=== PATIENT | male | born 1945 | race Caucasian/White ===

== ENCOUNTER → 2020-04-06 08:47 | Outpatient (BNVA) | payer MEDICARE, SELFPAY | PROVIDERS: PCP Internal Medicine; Referring Provider Internal Medicine; Visit Provider Hospitalist | DX: J44.9 Chronic obstructive pulmonary disease, unspecified (principal); J92.0 Pleural plaque with presence of asbestos; G47.33 Obstructive sleep apnea (adult) (pediatric) | CPT/HCPCS: 99214 ==

== ENCOUNTER 2021-03-13 08:35 | Outpatient (REF) | payer MEDICARE, SELFPAY ==
--- NOTE | 2021-03-13 13:02 | PFT_ITS ---
Forced vital capacity is slightly decreased. FEV1 is normal. [id number] is normal. MVV moderately decreased probably due to poor effort. Bronchodilator challenge was not given. Total lung capacity is moderately decreased. Residual volume slightly decreased. Diffusion capacity is markedly decreased. CONCLUSION: There is evidence of [id number] degree of restrictive pulmonary disorder. No significant obstructive disorder is noted. Diffusion capacity is decreased relatively out of proportion to the other values. This may be due to presence of pulmonary emphysema or non-pulmonary factors. Clinical correlation is recommended. MD DORITA Madrigal/MODL / [id number]
== END 2021-03-13 08:36 | disposition home or self-care (01) ==
LOC: HO.RESP 08:35
PROVIDERS: PCP Internal Medicine; Visit Provider Hospitalist
DX: J41.0 Simple chronic bronchitis (principal)
CPT/HCPCS: 94010

== ENCOUNTER → 2021-04-05 08:47 | Outpatient (BNVA) | payer MEDICARE, SELFPAY | PROVIDERS: PCP Internal Medicine; Visit Provider Hospitalist | DX: J41.0 Simple chronic bronchitis (principal); J92.0 Pleural plaque with presence of asbestos; J98.4 Other disorders of lung; G47.33 Obstructive sleep apnea (adult) (pediatric) | CPT/HCPCS: 99212 ==

== ENCOUNTER → 2022-04-07 09:28 | Outpatient (BNVA) | payer MEDICARE, SELFPAY | PROVIDERS: PCP Internal Medicine; Visit Provider Hospitalist | DX: J41.0 Simple chronic bronchitis (principal); T57.8X1A Toxic effect of other specified inorganic substances, accidental (unintentional), initial encounter; J68.8 Other respiratory conditions due to chemicals, gases, fumes and vapors; Y92.9 Unspecified place or not applicable; J98.4 Other disorders of lung; G47.33 Obstructive sleep apnea (adult) (pediatric); Z99.89 Dependence on other enabling machines and devices | CPT/HCPCS: 99212 ==

== ENCOUNTER 2023-04-07 09:29 | Outpatient (AMB) | payer MEDICARE, SELFPAY ==
[2023-04-07 09:29] VITALS: BMI 25.8
--- NOTE | 2023-04-07 09:29 | A.OFFVIS_ITS ---
Intake Vital Signs 04/07/23 09:29 Height 5 ft 8 in Weight 170 lb BMI 25.8 Intake Visit Reasons: copd Manager Investment Required: No Allergies alprazolam [Xanax] Allergy (Mild, Verified 04/07/23 09:30) Itch and Rash amiodarone Allergy (Mild, Verified 04/07/23 09:30) Extreme Nausea/gastritis carisoprodol [Soma] Allergy (Mild, Verified 04/07/23 09:30) tachycardia/arryhythmia isosorbide Allergy (Mild, Verified 04/07/23 09:30) Hypotension lidocaine [Xylocaine] Allergy (Mild, Verified 04/07/23 09:30) Go into Shock HPI HPI Comments History of Present Illness Details the patient is a 78-year-old gentleman with a known history of COPD, bx proven asbestos related lung disease, abestosis history and obstructive sleep apnea on BiPAP. Overall has been doing well on the current respiratory regimen. Sometimes when he exerts himself he does get short of breath and he needs to take a break in himself short-acting beta agonist. Usually activities like mowing the lawn or cutting branches resulting some increased shortness of breath. In the meantime the patient has been using his BiPAP. The BiPAP therapy has been effective in beneficial. He does use the BiPAP every night for more than 4 hours. He does have a comfortable mask and he does get supplies regularly. In regards of his abnormal CT scan he did [place] a [place] [facility] [place] [facility] He has stable asbestos related lung disease without any evidence of any pulmonary nodules. He does have calcifications of the coronary arteries consistent with this atherosclerosis. From a cardiac standpoint has been doing well after his cardiac bypass. Also to note the patient was supposed to have pulmonary function studies and the late spring time but postponed due to the COVID-19 infections. Subsequent after that the patie nt has been doing well and still concerned about exposures. Therefore will hold off until next year since he is doing well at this time. 04/05/2021 the patient is here for a pul monary follow-up visit. Overall he is doing very well. Still complaining of dyspnea on exertion specially when going up an incline or stairs. He does not require oxygen at this time. He does uses BiPAP at nighttime. The BiPAP therapy has been affecting beneficial. He does use it more than 4 hours a night. Gets that through [facility]. in addition to that he has been on Symbicort and Spiriva. Recently received a letter from the [facility] that there is switching over to wakes up. I have reassured him that is a good medicine. But the powder inhalers he needs to make sure that he rinses well after worse. The patient will do so. The patient also is scheduled to undergo a CT scan of the chest to assess the asbestos related lung disease. In the meantime we had him undergo pulmonary function studies. His total lung capacity was indeed low at 65% predicted and his diffusing capacity low at 35% predicted. Therefore, the restrictive lung disease likely from the asbestos related lung disease. I will request a copy of his CT scan. We did go for brief walking oximetry in he maintain a pulse ox of 96% with activity during the brief walk which is reassuring. He is going down to [place] for the winter and when he comes back in November will have him go undergo a formal 6 minutes walk test. Otherwise patient is doing well and will follow-up in November. 04/07/2022 the patient is here for a pulmonary follow-up visit. is been about a year since we spoke. The patient denies any recent exacerbations. He has not required any prednisone. Has been very compliant with respiratory therapy. He also has underlying nasal congestion due to allergies. He has been on the antihistamine therapy in the leukotriene inhibitor with good effect. [facility] He has underlying asbestos lung disease in the form asbestos plaques in addition to that has evidence of interstitial lung disease the asbestosis. pulmonary nodules have been stable. No significant changes on the CT scan when compared to his CT scan from 2020. his last diffusing capacity was 35% any at evidence of restrictive lung disease due to the underlying asbestosis History. He will likely have repeat pulmonary function studies down in [place]. In the meantime he continues uses BiPAP. The BiPAP therapy continues to be affecting beneficial. He does use it for more than 4 hours a night. 04/07/2023 the patient has a telehealth visit today. The patient overall has been doing well. Responding well to his current respiratory regimen which includes the weeks along the Spiriva. He has not had to use his rescue inhaler. Denies any significant shortness of breath at rest.. Although, he does have dyspnea on exertion, [id number] severity Denies any cough or wheezing. The patient did undergo a CT scan of the chest and was compared to the CT scan that he had back in March 2022. It appears that he does have evidence of interstitial parenchymal disease likely from asbestosis in addition to the asbestos plaques. At this point the interstitial lung disease is not progressive in appears to be stable. Therefore no need for any further interventions. The patient is scheduled to undergo a repeat CT scan next year. Will follow-up in a year's time and at that point recommend a 6 minute walk test. If the patient continues to have the dyspnea on exertion prior to the next visit he can always have 1 done with his local providers in [place]. [facility] Medical History (Updated 04/07/22 @ 20:31 by Vu Marin MD) Chronic restrictive lung disease CATHERINE treated with BiPAP CATHERINE on CPAP Asbestos-induced pleural plaque Asbestosis COPD (chronic obstructive pulmonary disease) Family History (Updated 03/21/20 @ 14:41 by Amie Iglesias, SAI) Father No problems noted. Mother No problems noted. Social History (Updated 04/05/21 @ 09:07 by PRATEEK Azar) Patient Tobacco Use Status: Never used Tobacco Review of Systems Const Denies night sweats ENT Denies change in voice, Denies lip swelling, Denies mouth pain, Reports nasal congestion, Reports nasal discharge and Denies tongue swelling Card Denies chest pain and Reports dyspnea on exertion Resp Reports cough and Reports dyspnea on exertion GI Denies abdominal pain Musc Denies no additional complaints Neuro Denies Neuro-related abnormal movements Psych Denies no additional complaints Edward/Lymph Denies easy bleeding and Denies lymphadenopathy Aller/Immun Denies lip swelling and Denies tongue swelling Physical Exam Vital Signs: BMI result Body Mass Index 25.8 Const General: comfortable and alert Orientation/consciousness: patient oriented x3 Resp Effort & Inspection: normal respiratory effort and able to speak in complete sentences Neuro General: patient oriented x3 Assessment & Plan Assessment & Plan (1) COPD (chronic obstructive pulmonary disease): Code(s): J44.9 - Chronic obstructive pulmonary disease, unspecified Qualifiers: COPD type: chronic bronchitis Chronic bronchitis type: simple Qualified Code(s): J41.0 - Simple chronic bronchitis Plan: consider using his short-acting beta agonist prior to exercise (2) Asbestos-induced pleural plaque: Code(s): J92.0 - Pleural plaque with presence of asbestos Plan: repeat CT scan of the chest in 1 year (3) CATHERINE treated with BiPAP: Code(s): G47.33 - Obstructive sleep apnea (adult) (pediatric) Plan: continue BIPAP (4) Chronic restrictive lung disease: Comment: Due to asbestosis/ILD, unchanged Code(s): J98.4 - Other disorders of lung Plan Continue Wixela and spiriva Continue Singulair 6MWT during the next visit PFTs [address] [facility] Continue BIPAP at night F/U 12 months Orders: Orders PFT pulmonary function test 364 Days J92.0 - Pleural plaque with presence of asbestos Telehealth Telehealth Location of provider rendering services: practice address Location of patient: address on file Patient Identification confirmed using: Name, : Yes Telehealth method: voice only Patient verbally consented to treatment: Yes Patient verbally consented to billing insurance company: Yes Patient informed of any privacy concerns related to visit: Yes Coding Level of Care Code Tele Est Pt Level 4 (65029) Diagnoses Simple chronic bronchitis J41.0 COPD type: chronic bronchitis Chronic bronchitis type: simple Asbestos-induced pleural plaque J92.0 CATHERINE treated with BiPAP G47.33 Chronic restrictive lung disease J98.4 Time Spent (min) 14
== END 2023-04-07 09:45 | disposition home or self-care (01) ==
LOC: HO.HPS 09:29
PROVIDERS: PCP Internal Medicine; Visit Provider Hospitalist
DX: J41.0 Simple chronic bronchitis (principal); J92.0 Pleural plaque with presence of asbestos; G47.33 Obstructive sleep apnea (adult) (pediatric); J98.4 Other disorders of lung
CPT/HCPCS: 99442

== ENCOUNTER → 2023-04-07 09:29 | Outpatient (BNVA) | payer MEDICARE, SELFPAY | PROVIDERS: PCP Internal Medicine; Visit Provider Hospitalist ==

== ENCOUNTER 2024-03-19 09:52 | Outpatient (REF) | payer MEDICARE, SELFPAY ==
[2024-03-19 09:57] VITALS: PULSE 50; RESP 16; O2SAT 98
--- NOTE | 2024-03-19 10:00 | PFT_ITS ---
Flows: FEV1: 77 % of predicted at 2.06 L FVC: 90 % of predicted at 3.24 L FEV1/FVC: 64 % Bronchodilator response: Present in small to medium airways only Volumes: Total lung capacity: 73 % of predicted at 4.81 L Residual volume: 59 % of predicted at 1.57 L Slow vital capacity: 86 % of predicted at 3.24 L Expiratory reserve volume: 66 % of predicted at 0.73 L Diffusion capacity: Moderately decreased, adjusts to being mildly decreased after correction for alveolar ventilation. Impression: Combined mild obstructive and mild restrictive ventilatory defect with bronchodilator response in small to medium airways only. Decreased diffusion capacity suggests emphysema. MTDD
== END 2024-03-19 09:53 | disposition home or self-care (01) ==
LOC: HO.RESP 09:52
PROVIDERS: PCP Internal Medicine; Visit Provider Hospitalist
DX: J92.0 Pleural plaque with presence of asbestos (principal)
CPT/HCPCS: 94010; 94640; 94727; 94729

== ENCOUNTER 2024-04-07 11:10 | Outpatient (AMB) | payer MEDICARE, SELFPAY ==
--- NOTE | 2024-04-07 11:14 | A.OFFVIS_ITS ---
Vital Signs 04/07/24 11:16 Height 5 ft 8 in Weight 175 lb BMI 26.6 BP 128/77 Blood Pressure Location Lt brachial Position Sitting Pulse 52 Pulse Source Pulse Oximeter Pulse Oximetry (%) 98 Oxygen Delivery Method Room Air Intake Visit Reasons: COPD Clinical Psychologist Private Practice Required: No Allergies alprazolam [Xanax] Allergy (Mild, Verified 04/07/24 11:19) Itch and Rash amiodarone Allergy (Mild, Verified 04/07/24 11:19) Extreme Nausea/gastritis carisoprodol [Soma] Allergy (Mild, Verified 04/07/24 11:19) tachycardia/arryhythmia isosorbide Allergy (Mild, Verified 04/07/24 11:19) Hypotension lidocaine [Xylocaine] Allergy (Mild, Verified 04/07/24 11:19) Go into Shock HPI Comments Details: the patient is a 79 year-old gentleman with a known history of COPD, bx proven asbestos related lung disease, abestosis history and obstructive sleep apnea on BiPAP. Overall has been doing well on the current respiratory regimen. Sometimes when he exerts himself he does get short of breath and he needs to take a break in himself short-acting beta agonist. Usually activities like mowing the lawn or cutting branches resulting some increased shortness of breath. In the meantime the patient has been using his BiPAP. The BiPAP therapy has been effective in beneficial. He does use the BiPAP every night for more than 4 hours. He does have a comfortable mask and he does get supplies regularly. In regards of his abnormal CT scan he did undergo a repeat [place] scan [place] March 2020 at the [place]. He has stable asbestos related lung disease without any evidence of any pulmonary nodules. He does have calcifications of the coronary arteries consistent with this atherosclerosis. From a cardiac standpoint has been doing well after his cardiac bypass. Also to note the patient was supposed to have pulmonary function studies and the late spring time but postponed due to the COVID-19 infections. Subsequent after that the patient has been doing well and still concerned about exposures. Therefore will hold off until next year since he is doing well at this time. 04/05/2021 the patient is here for a pulmonary follow-up visit. Overall he is doing very well. Still complaining of dyspnea on exertion specially when going up an incline or stairs. He does not require oxygen at this time. He does uses BiPAP at nighttime. The BiPAP therapy has been affecting beneficial. He does use it more than 4 hours a night. [facility] in addition to that he has been on Symbicort and Spiriva. Recently received a letter from the [place] that there is switching over to wakes up. I have reassured him that is a good medicine. But the powder inhalers he needs to make sure that he rinses well after worse. The patient will do so. The patient also is scheduled to undergo a CT scan of the chest to assess the asbestos related lung disease. In the meantime we had him undergo pulmonary function studies. His total lung capacity was indeed low at 65% predicted and his diffusing capacity low at 35% predicted. Therefore, the restrictive lung disease likely from the asbestos related lung disease. I will request a copy of his CT scan. We did go for brief walking oximetry in he maintain a pulse ox of 96% with activity during the brief walk which is reassuring. He is going down to [place] for the winter and when he comes back in November will have him go undergo a formal 6 minutes walk test. Otherwise patient is doing well and will follow-up in November. 04/07/2022 the patient is here for a pulmonary follow-up visit. is been about a year since we spoke. The patient denies any recent exacerbations. He has not required any prednisone. Has been very compliant with respiratory therapy. He also has underlying nasal congestion due to allergies. He has been on the antihistamine therapy in the leukotriene inhibitor with good effect. [facility] He has underlying asbestos lung disease in the form asbestos plaques in addition to that has evidence of interstitial lung disease the asbestosis. pulmonary nodules have been stable. No significant changes on the CT scan when compared to his CT scan from 2020. his last diffusing capacity was 35% any at evidence of restrictive lung disease due to the underlying asbestosis History. He will likely have repeat pulmonary function studies down in [place]. In the meantime he continues uses BiPAP. The BiPAP therapy continues to be affecting beneficial. He does use it for more than 4 hours a night. 04/07/2023 the patient has a telehealth visit today. The patient overall has been doing well. Responding well to his current respiratory regimen which includes the weeks along the Spiriva. He has not had to use his rescue inhaler. Denies any significant shortness of breath at rest.. Although, he does have dyspnea on exertion, [id number] severity Denies any cough or wheezing. The patient did undergo a CT scan of the chest and was compared to the CT scan that he had back in March 2022. It appears that he does have evidence of interstitial parenchymal disease likely from asbestosis in addition to the asbestos plaques. At this point the interstitial lung disease is not progressive in appears to be stable. Therefore no need for any further interventions. The patient is scheduled to undergo a repeat CT scan next year. Will follow-up in a year's time and at that point recommend a 6 minute walk test. If the patient continues to have the dyspnea on exertion prior to the next visit he can always have 1 done with his local providers in [place]. [facility] Medical History (Updated 04/07/24 @ 12:14 by Vu Marin MD) Chronic restrictive lung disease CATHERINE treated with BiPAP CATHERINE on CPAP Asbestos-induced pleural plaque Asbestosis COPD (chronic obstructive pulmonary disease) Family History (Updated 03/21/20 @ 14:41 by Amie Iglesias, SAI) Father No problems noted. Mother No problems noted. Social History (Updated 04/05/21 @ 09:07 by PRATEEK Azar) Patient Tobacco Use Status: Never used Tobacco Review of Systems Const Denies night sweats ENT Denies change in voice, Denies lip swelling, Denies mouth pain, Reports nasal congestion, Reports nasal discharge and Denies tongue swelling Card Denies chest pain and Reports dyspnea on exertion Resp Reports cough and Reports dyspnea on exertion GI Denies abdominal pain Musc Denies no additional complaints Neuro Denies Neuro-related abnormal movements Psych Denies no additional complaints Edward/Lymph Denies easy bleeding and Denies lymphadenopathy Aller/Immun Denies lip swelling and Denies tongue swelling Physical Exam Vital Signs: Last Vital Signs Pulse 52 04/07/24 11:16 BP 128/77 04/07/24 11:16 Pulse Ox 98 04/07/24 11:16 Oxygen Delivery Method Room Air 04/07/24 11:16 BMI result Body Mass Index 26.6 Const General: alert HEENT General nose exam: Abnormal external nose present (due to CPAP nasal mask) nasal tenderness and nasal abrasion and Nasal discharge present Eyes Pupils: Equal, round and reactive pupils present Neck Neck: Yes normal visual inspection, Yes full ROM and Yes no lymphadenopathy Chest Chest palpation & inspection: normal inspection of the chest Resp Auscultation: no wheezes (only on force exhalation) and diminished lung sounds Cardio Rate: regular rate Rhythm: regular rhythm Heart sounds: S1 normal heart sound present and S2 normal heart sound present GI Palpation (GI): Soft to palpation and nontender Auscultation: normal bowel sounds General: Yes no CVA tenderness Back/Spine/Pelvis Back: no CVA tenderness Skin General skin exam: rashes and/or lesions noted Neuro Cranial nerves: Yes Equal, round and reactive pupils present Immunizations pneumoc 20-lucia conj-dip cr(PF) 0.5 mL IM syringe Performing Provider: Vu Marin MD Performing Location[place] [facility] Administered by: Yudith Baldwin LPN on 04/07/24 11:51 Dose Route Admin Location Dispensed Lot Number Expiration Date [employer] 0.5 mL IM Left Deltoid 0.5 mL [id number] 03/21/25 2113-3825-12 [employer] VIS Given Date VIS Provided VIS Publication Date 04/07/24 Single Vaccine 21 Eligibility Eligibility Date Funding Source Not [facility] Eligible 04/07/24 Private Assessment & Plan Assessment & Plan (1) COPD (chronic obstructive pulmonary disease): Comment: PFTs-MOderate [employer] Code(s): J44.9 - Chronic obstructive pulmonary disease, unspecified Category: Medical Qualifiers: COPD type: chronic bronchitis Chronic bronchitis type: simple Qualified Code(s): J41.0 - Simple chronic bronchitis Plan: consider using his short-acting beta agonist prior to exercise (2) Asbestos-induced pleural plaque: Code(s): J92.0 - Pleural plaque with presence of asbestos Category: Medical Plan: repeat CT scan of the chest in 1 year (3) CATHERINE treated with BiPAP: Code(s): G47.33 - Obstructive sleep apnea (adult) (pediatric) Category: Medical Plan: continue BIPAP (4) Chronic restrictive lung disease: Comment: Due to asbestosis/ILD, unchanged Code(s): J98.4 - Other disorders of lung Category: Medical Plan Continue Wixela and spiriva Continue Singulair PFTs [address] [facility]awaiting results) Continue BIPAP at night, Trial F30i small mask F/U 12 months Orders: Orders Pneumococcal 20 Immunization Today J41.0 - Simple chronic bronchitis Coding Level of Care Code Est Pt Level 4 (34574) Complex EM visit Add On G2211 Diagnoses Simple chronic bronchitis J41.0 COPD type: chronic bronchitis Chronic bronchitis type: simple Asbestos-induced pleural plaque J92.0 CATHERINE treated with BiPAP G47.33 Chronic restrictive lung disease J98.4 Time Spent (min) 17
[2024-04-07 11:16] VITALS: BP 128/77; PULSE 52; O2SAT 98; BMI 26.6
== END 2024-04-07 11:49 | disposition home or self-care (01) ==
PROVIDERS: PCP Internal Medicine; Visit Provider Hospitalist
DX: J41.0 Simple chronic bronchitis (principal); J92.0 Pleural plaque with presence of asbestos; G47.33 Obstructive sleep apnea (adult) (pediatric); J98.4 Other disorders of lung
CPT/HCPCS: 99214; G2211

== ENCOUNTER → 2024-04-07 11:10 | Outpatient (BNVA) | payer MEDICARE, SELFPAY | PROVIDERS: PCP Internal Medicine; Visit Provider Hospitalist | DX: J41.0 Simple chronic bronchitis (principal); J92.0 Pleural plaque with presence of asbestos; J98.4 Other disorders of lung; G47.33 Obstructive sleep apnea (adult) (pediatric); Z23 Encounter for immunization; Z99.89 Dependence on other enabling machines and devices; Z79.899 Other long term (current) drug therapy | CPT/HCPCS: 90471; 90677; 99212 ==

== ENCOUNTER 2024-12-01 13:02 | Outpatient (AMB) | payer MEDICARE, SELFPAY ==
--- NOTE | 2024-12-01 13:06 | A.OFFVIS_ITS ---
Vital Signs 12/01/24 13:07 Height 5 ft 8 in BMI Reason not done Patient refused/unable BP 154/66 H Blood Pressure Location Lt brachial Position Sitting Pulse 64 Pulse Source Pulse Oximeter Pulse Oximetry (%) 98 Oxygen Delivery Method Room Air Intake Visit Reasons: COPD/Pulm Clearance Retail Support Specialist Required: No Accompanied by: Spouse Allergies alprazolam [Xanax] Allergy (Mild, Verified 12/01/24 13:10) Itch and Rash amiodarone Allergy (Mild, Verified 12/01/24 13:10) Extreme Nausea/gastritis carisoprodol [Soma] Allergy (Mild, Verified 12/01/24 13:10) tachycardia/arryhythmia isosorbide Allergy (Mild, Verified 12/01/24 13:10) Hypotension lidocaine [Xylocaine] Allergy (Mild, Verified 12/01/24 13:10) Go into Shock HPI Comments Details: the patient is a 79 year-old gentleman with a known history of COPD, bx proven asbestos related lung disease, abestosis history and obstructive sleep apnea on BiPAP. Overall has been doing well on the current respiratory regimen. Sometimes when he exerts himself he does get short of breath and he needs to take a break in himself short-acting beta agonist. Usually activities like mowing the lawn or cutting branches resulting some increased shortness of breath. In the meantime the patient has been using his BiPAP. The BiPAP therapy has been effective in beneficial. He does use the BiPAP every night for more than 4 hours. He does have a comfortable mask and he does get supplies regularly. In regards of his abnormal CT scan he did undergo a repeat [place] [facility] [place] [facility] [place] He has stable asbestos related lung disease without any evidence of any pulmonary nodules. He does have calcifications of the coronary arteries consistent with this atherosclerosis. From a cardiac standpoint has been doing well after his cardiac bypass. Also to note the patient was supposed to have pulmonary function studies and the late spring time but postponed due to the COVID-19 infections. Subsequent after that the patient has been doing well and still concerned about exposures. Therefore will hold off until next year since he is doing well at this time. 04/05/2021 the patient is here for a pulmonary follow-up visit. Overall he is doing very well. Still complaining of dyspnea on exertion specially when going up an incline or stairs. He does not require oxygen at this time. He does uses BiPAP at nighttime. The BiPAP therapy has been affecting beneficial. He does use it more than 4 hours a night. [facility] in addition to that he has been on Symbicort and Spiriva. Recently received a letter from the [facility] that there is switching over to wakes up. I have reassured him that is a good medicine. But the powder inhalers he needs to make sure that he rinses well after worse. The patient will do so. The patient also is scheduled to undergo a CT scan of the chest to assess the asbestos related lung disease. In the meantime we had him undergo pulmonary function studies. His total lung capacity was indeed low at 65% predicted and his diffusing capacity low at 35% predicted. Therefore, the restrictive lung disease likely from the asbestos related lung disease. I will request a copy of his CT scan. We did go for brief walking oximetry in he maintain a pulse ox of 96% with activity during the brief walk which is reassuring. He is going down to [place] for the winter and when he comes back in November will have him go undergo a formal 6 minutes walk test. Otherwise patient is doing well and will follow-up in November. 04/07/2022 the patient is here for a pulmonary follow-up visit. is been about a year since we spoke. The patient denies any recent exacerbations. He has not required any prednisone. Has been very compliant with respiratory therapy. He also has underlying nasal congestion due to allergies. He has been on the antihistamine therapy in the leukotriene inhibitor with good effect. [facility] He has underlying asbestos lung disease in the form asbestos plaques in addition to that has evidence of interstitial lung disease the asbestosis. pulmonary nodules have been stable. No significant changes on the CT scan when compared to his CT scan from 2020. his last diffusing capacity was 35% any at evidence of restrictive lung disease due to the underlying asbestosis History. He will likely have repeat pulmonary function studies down in [place]. In the meantime he continues uses BiPAP. The BiPAP therapy continues to be affecting beneficial. He does use it for more than 4 hours a night. 04/07/2023 the patient has a telehealth visit today. The patient overall has been doing well. Responding well to his current respiratory regimen which includes the weeks along the Spiriva. He has not had to use his rescue inhaler. Denies any significant shortness of breath at rest.. Although, he does have dyspnea on exertion, [id number] severity Denies any cough or wheezing. The patient did undergo a CT scan of the chest and was compared to the CT scan that he had back in March 2022. It appears that he does have evidence of interstitial parenchymal disease likely from asbestosis in addition to the asbestos plaques. At this point the interstitial lung disease is not progressive in appears to be stable. Therefore no need for any further interventions. The patient is scheduled to undergo a repeat CT scan next year. Will follow-up in a year's time and at that point recommend a 6 minute walk test. If the patient continues to have the dyspnea on exertion prior to the next visit he can always have 1 done with his local providers in [place]. 12/01/2024 the patient is here for pulmonary follow-up visit. The patient is scheduled to undergo a urological procedure soon under general anesthesia. From a respiratory status the patient is doing very well and is currently optimized in his current respiratory therapy. His last PFTs from the fall 2023 demonstrated only [id number] COPD and also mild restrictive lung disease from the asbestos related lung disease. He continues uses PAP therapy with very good effect. He has issues with the mask. Initially the fullface mask was causing injury of his nasal bridge so we switched him over to an F30 mask but he has significant amount of leakage. I did have an F20 AirTouch full mask medium that he tried and he a comfortable with. Therefore he will start using that 1 and he will request that from the [facility]. again, from a pulmonary standpoint the patient may be able to proceed with anesthesia and surgery at this time without any limitations. The patient should be provided pre and post bronchodilator therapy if needed and postoperatively the patient should use his BiPAP. If he has any issues he can always call us for further evaluation recommendations. [facility] Medical History (Updated 12/01/24 @ 19:31 by Vu Marin MD) Chronic restrictive lung disease CATHERINE treated with BiPAP CATHERINE on CPAP Asbestos-induced pleural plaque Asbestosis COPD (chronic obstructive pulmonary disease) Family History (Updated 03/21/20 @ 14:41 by Amie Iglesias RRT) Father No problems noted. Mother No problems noted. Social History Patient Tobacco Use Status: Never used Tobacco Review of Systems Const Denies night sweats ENT Denies change in voice, Denies lip swelling, Denies mouth pain, Reports nasal congestion, Reports nasal discharge and Denies tongue swelling Card Denies chest pain and Reports dyspnea on exertion Resp Reports cough and Reports dyspnea on exertion GI Denies abdominal pain Musc Denies no additional complaints Neuro Denies Neuro-related abnormal movements Psych Denies no additional complaints Edward/Lymph Denies easy bleeding and Denies lymphadenopathy Aller/Immun Denies lip swelling and Denies tongue swelling Physical Exam Vital Signs: Last Vital Signs Pulse 64 12/01/24 13:07 BP 154/66 H 12/01/24 13:07 Pulse Ox 98 12/01/24 13:07 Oxygen Delivery Method Room Air 12/01/24 13:07 Const General: alert HEENT General nose exam: Normal external nose present Eyes Pupils: Equal, round and reactive pupils present Neck Neck: Yes normal visual inspection, Yes full ROM and Yes no lymphadenopathy Chest Chest palpation & inspection: normal inspection of the chest Resp Auscultation: no wheezes (only on force exhalation) and diminished lung sounds Cardio Rate: regular rate Rhythm: regular rhythm Heart sounds: S1 normal heart sound present and S2 normal heart sound present GI Palpation (GI): Soft to palpation and nontender Auscultation: normal bowel sounds General: Yes no CVA tenderness Back/Spine/Pelvis Back: no CVA tenderness Skin General skin exam: rashes and/or lesions noted Neuro Cranial nerves: Yes Equal, round and reactive pupils present Assessment & Plan Assessment & Plan (1) COPD (chronic obstructive pulmonary disease): Comment: [id number] OUTSOLE TACKER Code(s): J44.9 - Chronic obstructive pulmonary disease, unspecified Category: Medical Qualifiers: COPD type: chronic bronchitis Chronic bronchitis type: simple Qualified Code(s): J41.0 - Simple chronic bronchitis Plan: consider using his short-acting beta agonist prior to exercise (2) Asbestos-induced pleural plaque: Code(s): J92.0 - Pleural plaque with presence of asbestos Category: Medical Plan: repeat CT scan of the chest in 1 year (3) CATHERINE treated with BiPAP: Code(s): G47.33 - Obstructive sleep apnea (adult) (pediatric) Category: Medical Plan: continue BIPAP (4) Chronic restrictive lung disease: Comment: Due to asbestosis/ILD, unchanged Code(s): J98.4 - Other disorders of lung Category: Medical (5) Pre-op chest exam: Code(s): Z01.811 - Encounter for preprocedural respiratory examination Category: Medical Plan Proceed with anesthesia and surgery at this time. He is medically optimized from a pulmonary standpoint Continue Wixela and spiriva [facility], [facility] 2023 Continue BIPAP at night, Trial F30i small mask failed, trial F20 airtouch foam, Med F/U 6-12 months Coding Level of Care Code Est Pt Level 4 (67036) Complex EM visit Add On G2211 Diagnoses Simple chronic bronchitis J41.0 COPD type: chronic bronchitis Chronic bronchitis type: simple Asbestos-induced pleural plaque J92.0 CATHERINE treated with BiPAP G47.33 Chronic restrictive lung disease J98.4 Pre-op chest exam Z01.811 Time Spent (min) 17
[2024-12-01 13:07] VITALS: BP 154/66; PULSE 64; O2SAT 98
== END 2024-12-01 14:28 | disposition home or self-care (01) ==
PROVIDERS: PCP Internal Medicine; Visit Provider Hospitalist
DX: J41.0 Simple chronic bronchitis (principal); J92.0 Pleural plaque with presence of asbestos; G47.33 Obstructive sleep apnea (adult) (pediatric); J98.4 Other disorders of lung; Z01.811 Encounter for preprocedural respiratory examination
CPT/HCPCS: 99214; G2211

== ENCOUNTER → 2024-12-01 13:02 | Outpatient (BNVA) | payer SELFPAY | PROVIDERS: PCP Internal Medicine; Visit Provider Hospitalist | DX: Z01.811 Encounter for preprocedural respiratory examination (principal); J41.0 Simple chronic bronchitis; J92.0 Pleural plaque with presence of asbestos; G47.33 Obstructive sleep apnea (adult) (pediatric); J98.4 Other disorders of lung | CPT/HCPCS: 99212 ==

== ENCOUNTER 2025-04-07 10:44 | Outpatient (AMB) | payer MEDICARE, SELFPAY ==
[2025-04-07 10:46] VITALS: BP 140/60; PULSE 61; O2SAT 96
--- NOTE | 2025-04-07 10:46 | MHC.OFFVIS ---
Vital Signs 04/07/25 10:46 Height 5 ft 8 in BMI Reason not done Patient refused/unable BP 140/60 H Blood Pressure Location Lt brachial Position Sitting Pulse 61 Pulse Source Pulse Oximeter Pulse Oximetry (%) 96 Oxygen Delivery Method Room Air Intake Visit Reasons: copd Allergies alprazolam (Xanax) Allergy (Mild, Verified 04/07/25 10:48) Itch and Rash amiodarone Allergy (Mild, Verified 04/07/25 10:48) Extreme Nausea/gastritis carisoprodol (Soma) Allergy (Mild, Verified 04/07/25 10:48) tachycardia/arryhythmia isosorbide Allergy (Mild, Verified 04/07/25 10:48) Hypotension lidocaine (Xylocaine) Allergy (Mild, Verified 04/07/25 10:48) Go into Shock HPI Comments Details: The patient is a 80 year-old gentleman with a known history of COPD, bx proven asbestos related lung disease, abestosis history and obstructive sleep apnea on BiPAP. Overall has been doing well on the current respiratory regimen. Sometimes when he exerts himself he does get short of breath and he needs to take a break in himself short-acting beta agonist. Usually activities like mowing the lawn or cutting branches resulting some increased shortness of breath. In the meantime the patient has been using his BiPAP. The BiPAP therapy has been effective in beneficial. He does use the BiPAP every night for more than 4 hours. He does have a comfortable mask and he does get supplies regularly. In regards of his abnormal CT scan he did [place] a [place] [facility] [place] [facility]. He has stable asbestos related lung disease without any evidence of any pulmonary nodules. He does have calcifications of the coronary arteries consistent with this atherosclerosis. From a cardiac standpoint has been doing well after his cardiac bypass. Also to note the patient was supposed to have pulmonary function studies and the late spring time but postponed due to the COVID-19 infections. Subsequent after that the patient has been doing well and still concerned about exposures. Therefore will hold off until next year since he is doing well at this time. 04/05/2021 the patient is here for a pulmonary follow-up visit. Overall he is doing very well. Still complaining of dyspnea on exertion specially when going up an incline or stairs. He does not require oxygen at this time. He does uses BiPAP at nighttime. The BiPAP therapy has been affecting beneficial. He does use it more than 4 hours a night. [facility] in addition to that he has been on Symbicort and Spiriva. Recently received a letter from the [facility] that there is switching over to wakes up. I have reassured him that is a good medicine. But the powder inhalers he needs to make sure that he rinses well after worse. The patient will do so. The patient also is scheduled to undergo a CT scan of the chest to assess the asbestos related lung disease. In the meantime we had him undergo pulmonary function studies. His total lung capacity was indeed low at 65% predicted and his diffusing capacity low at 35% predicted. Therefore, the restrictive lung disease likely from the asbestos related lung disease. I will request a copy of his CT scan. We did go for brief walking oximetry in he maintain a pulse ox of 96% with activity during the brief walk which is reassuring. He is going down to [place] for the winter and when he comes back in November will have him go undergo a formal 6 minutes walk test. Otherwise patient is doing well and will follow-up in November. 04/07/2022 the patient is here for a pulmonary follow-up visit. is been about a year since we spoke. The patient denies any recent exacerbations. He has not required any prednisone. Has been very compliant with respiratory therapy. He also has underlying nasal congestion due to allergies. He has been on the antihistamine therapy in the leukotriene inhibitor with good effect. [facility] He has underlying asbestos lung disease in the form asbestos plaques in addition to that has evidence of interstitial lung disease the asbestosis. pulmonary nodules have been stable. No significant changes on the CT scan when compared to his CT scan from 2020. his last diffusing 04/07/2025 the patient is here for liana the fullface mask was causing injury of his nasal bridge so we switched him over to an F30 mask but he has significant amount of leakage. I did have an F20 AirTouch full mask medium that he tried and he a comfortable with. Therefore he will start using that 1 and he will request that from the [facility]. again, from a pulmonary standpoint the patient may be able to proceed with anesthesia and surgery at this time without any limitations. The patient should be provided pre and post bronchodilator therapy if needed and postoperatively the patient should use his BiPAP. If he has any issues he can always call us for further evaluation recommendations. 04/07/2025 the patient is here for pulmonary follow-up visit. Overall he is doing well. He continues his respiratory medications. [facility] He has not issues. He recently did have a cold and he is wearing a mask because he has still some chest congestion and cough. But overall she feels better he did not have to take any prescription medications. Just [id number] cough medicine. He did have a CT scan of the chest back in March 2024 which she did bring the report demonstrated stable disease. He does have asbestos related lung disease which appears to be stable. They did follow his pulmonary nodules up to 2017 demonstrating stability of disease. He will likely get another CAT scan this year. The patient will try the Bentson Lex for the cough otherwise he will continue his current respiratory therapy will follow-up in a year's time. If any issues arise she can always call for an earlier assessment. [facility] Medical History (Updated 12/01/24 @ 19:31 by Vu Marin MD) Chronic restrictive lung disease CATHERINE treated with BiPAP CATHERINE on CPAP Asbestos-induced pleural plaque Asbestosis COPD (chronic obstructive pulmonary disease) Family History (Updated 03/21/20 @ 14:41 by Amie Iglesias RRT) Father No problems noted. Mother No problems noted. Social History Patient Tobacco Use Status: Never used Tobacco Review of Systems Const Denies night sweats ENT Denies change in voice, Denies lip swelling, Denies mouth pain, Reports nasal congestion, Reports nasal discharge and Denies tongue swelling Card Denies chest pain and Reports dyspnea on exertion Resp Reports cough and Reports dyspnea on exertion GI Denies abdominal pain Musc Denies no additional complaints Neuro Denies Neuro-related abnormal movements Psych Denies no additional complaints Edward/Lymph Denies easy bleeding and Denies lymphadenopathy Aller/Immun Denies lip swelling and Denies tongue swelling Physical Exam Vital Signs: Last Vital Signs Pulse 61 04/07/25 10:46 BP 140/60 H 04/07/25 10:46 Pulse Ox 96 04/07/25 10:46 Oxygen Delivery Method Room Air 04/07/25 10:46 Const General: alert HEENT General nose exam: Normal external nose present Eyes Pupils: Equal, round and reactive pupils present Neck Neck: Yes normal visual inspection, Yes full ROM and Yes no lymphadenopathy Chest Chest palpation & inspection: normal inspection of the chest Resp Auscultation: no wheezes (only on force exhalation) and diminished lung sounds Cardio Rate: regular rate Rhythm: regular rhythm Heart sounds: S1 normal heart sound present and S2 normal heart sound present GI Palpation (GI): Soft to palpation and nontender Auscultation: normal bowel sounds General: Yes no CVA tenderness Back/Spine/Pelvis Back: no CVA tenderness Skin General skin exam: rashes and/or lesions noted Neuro Cranial nerves: Yes Equal, round and reactive pupils present Assessment & Plan Assessment & Plan (1) COPD (chronic obstructive pulmonary disease): Comment: [id number] RESIDENT CARE PROVIDER Code(s): J44.9 - Chronic obstructive pulmonary disease, unspecified Category: Medical Qualifiers: COPD type: chronic bronchitis Chronic bronchitis type: simple Qualified Code(s): J41.0 - Simple chronic bronchitis Plan: consider using his short-acting beta agonist prior to exercise (2) Asbestos-induced pleural plaque: Code(s): J92.0 - Pleural plaque with presence of asbestos Category: Medical Plan: repeat CT scan of the chest in 1 year (3) CATHERINE treated with BiPAP: Code(s): G47.33 - Obstructive sleep apnea (adult) (pediatric) Category: Medical Plan: continue BIPAP (4) Chronic restrictive lung disease: Comment: Due to asbestosis/ILD, unchanged Code(s): J98.4 - Other disorders of lung Category: Medical Plan Continue Wixela and spiriva [facility] 2023 Continue BIPAP at night, F20 airtouch foam, Med F/U 6-12 months Medications: New benzonatate 200 mg PO BID PRN 60 caps 0RF cough 30 days Coding Level of Care Code Est Pt Level 4 (63944) Diagnoses Simple chronic bronchitis J41.0 COPD type: chronic bronchitis Chronic bronchitis type: simple Asbestos-induced pleural plaque J92.0 CATHERINE treated with BiPAP G47.33 Chronic restrictive lung disease J98.4 Time Spent (min) 16
== END 2025-04-07 11:12 | disposition home or self-care (01) ==
LOC: HO.HPS 10:44
PROVIDERS: PCP Internal Medicine; Visit Provider Hospitalist
DX: J41.0 Simple chronic bronchitis (principal); J92.0 Pleural plaque with presence of asbestos; G47.33 Obstructive sleep apnea (adult) (pediatric); J98.4 Other disorders of lung
CPT/HCPCS: 99214

== ENCOUNTER → 2025-04-07 10:44 | Outpatient (BNVA) | payer MEDICARE, SELFPAY | PROVIDERS: PCP Internal Medicine; Visit Provider Hospitalist | DX: J41.0 Simple chronic bronchitis (principal); J92.0 Pleural plaque with presence of asbestos; J98.4 Other disorders of lung; G47.33 Obstructive sleep apnea (adult) (pediatric) | CPT/HCPCS: 99212 ==